=== PATIENT | female | born 1995 | race African-American/Black ===

== ENCOUNTER 2017-10-25 09:10 | Emergency (ER) | payer OTHER ==
[~2017-10-25] VITALS: Ht 165.1 cm; Wt 122.0 kg
[~2017-10-25 09:10] MED LIST: ASPIR-LOW81 MG; FOLIC ACID0.4 MG; HUMALOG KW100 UNIT/1; HUMULIN N100 U/ML
== END 2017-10-25 14:38 | disposition home or self-care (01) ==
LOC: ER 09:10
DX: Z34.82 Encounter for supervision of other normal pregnancy, second trimester (principal); K29.60 Other gastritis without bleeding

== ENCOUNTER 2018-03-31 17:23 | Emergency (ER) | payer OTHER ==
[~2018-03-31] VITALS: Ht 162.6 cm; Wt 121.6 kg
[2018-03-31] MEDS ORDERED: PRENATAL + DHA1 EAC1 (17:59)
[2018-03-31] MEDS ORDERED: HUMALOG100 UNIT/1 (18:00)
[2018-03-31] MEDS ORDERED: HUMULIN N100 UNIT/1 (18:00)
== END 2018-03-31 19:03 | disposition home or self-care (01) ==
LOC: ER 17:23
DX: O26.893 Other specified pregnancy related conditions, third trimester (principal); S83.8X1A Sprain of other specified parts of right knee, initial encounter; W10.8XXA Fall (on) (from) other stairs and steps, initial encounter; Y92.89 Other specified places as the place of occurrence of the external cause; Y93.89 Activity, other specified; Y99.8 Other external cause status; Z34.03 Encounter for supervision of normal first pregnancy, third trimester

== ENCOUNTER → 2018-04-16 | Outpatient (CLI) | payer OTHER ==
[~2018-04-16] MED LIST changes: +HUMALOG100 UNIT/1; +HUMULIN N100 UNIT/1; +PRENATAL + DHA1 EAC1
== END | disposition home or self-care (01) ==
LOC: OBS/DEL 10:55
DX: O46.8X3 Other antepartum hemorrhage, third trimester (principal); Z34.83 Encounter for supervision of other normal pregnancy, third trimester

== ENCOUNTER 2020-10-22 18:08 | Emergency (ER) | payer OTHER ==
[~2020-10-22] VITALS: Ht 165.1 cm; Wt 122.0 kg
== END 2020-10-22 21:45 | disposition home or self-care (01) ==
LOC: ER 18:08
DX: U07.1 COVID-19 (principal)

== ENCOUNTER → 2021-07-02 | Emergency (ER) | payer OTHER ==
[~2021-07-02] VITALS: Ht 165.1 cm; Wt 120.2 kg
== END | disposition left against medical advice (07) ==
LOC: ER 23:32
DX: Z53.21 Procedure and treatment not carried out due to patient leaving prior to being seen by health care provider (principal)